=== PATIENT | female | born 1945 | race Caucasian/White ===

== ENCOUNTER 2017-01-30 08:42 | Emergency (ER) | payer MEDICARE, OTHER ==
[2017-01-30 08:54] VITALS: BP 135/81
--- NOTE | 2017-01-30 09:21 | UC ---
Neck Pain HPI - HPI Summary HPI Summary: GOT UP TO USE THE RESTROOM LAST NIGHT AND TWEAKED HER NECK. HAD IMMEDIATE PAIN RIGHT SIDE OF NECK. WORSE THIS MORNING. DID NOT TAKE ANY ANALGESICS. NO RADIATION OF THE PAIN. - History of Current Complaint Chief Complaint: UCBackPain Stated Complaint: NECK PAIN Time Seen by Provider: 01/30/17 09:10 Hx Obtained From: Patient Onset/Duration Of Injury/Symptoms: Hours Mechanism Of Injury: No Known Trauma Timing: Constant Onset/Duration: Sudden Onset, Lasting Hours, Still Present Severity: Moderate Pain Intensity: 2 Pain Scale Used: 0-10 Numeric Location: Discrete At: - RIGHT SIDE OF NECK Character: Sharp, Aching, Spasmotic Aggravating Factors: Movement Alleviating Factors: Nothing Associated Signs & Symptoms: Positive: Negative - Allergies/Home Medications Allergies/Adverse Reactions: Allergies Allergy/AdvReac Type Severity Reaction Status Date / Time Iodine Allergy Unknown Verified 03/06/16 08:59 Reaction Details Shellfish Allergy Allergy Vomiting Verified 03/06/16 08:59 Tramadol Allergy Unknown Verified 03/06/16 08:59 Reaction Details PMH/Surg Hx/FS Hx/Imm Hx Endocrine History Of: Denies: Diabetes, Thyroid Disease Cardiovascular History Of: Denies: Cardiac Disorders, Hypertension, Pacemaker/ICD Respiratory History Of: Denies: COPD, Asthma GI/ History Of: Denies: Ulcer Cancer History Of: Reports: Breast Cancer - LEFT - Surgical History Surgical History: Yes Surgery Procedure, Year, and Place: hip surgery left 2003; MASECTOMY LEFT 2012; BILATERAL FEET SX. Right hip replacement 02/2016 - Family History Family History: BREAST CANCER - SISTER - Social History Alcohol Use: None Alcohol Amount: 1/DAY Substance Use Type: None Smoking Status (MU): Never Smoked Tobacco - Immunization History Most Recent Influenza Vaccination: 2014 Most Recent Tetanus Shot: UP TO DATE Most Recent Pneumonia Vaccination: WITHIN 5 YRS Review Of Systems Constitutional: Positive: Negative Respiratory: Positive: Negative Cardiovascular: Positive: Negative Gastrointestinal: Positive: Negative Musculoskeletal: Positive: Arthralgia, Decreased ROM, Myalgia All Other Systems Reviewed And Are Negative: Yes Physical Exam Triage Information Reviewed: Yes Appearance: Well-Appearing, Well-Nourished, Pain Distress - MODERATE PAIN DISTRESS WITH ATTEMPTED HEAD MVMT Vital Signs: Initial Vital Signs Temp 98.4 F 01/30/17 08:48 Pulse 60 01/30/17 08:48 Resp 18 01/30/17 08:48 BP 135/81 01/30/17 08:48 Pulse Ox 100 01/30/17 08:48 Vital Signs Reviewed: Yes Eyes: Positive: Conjunctiva Clear ENT: Positive: Hearing grossly normal Neck: Positive: Supple, Nontender, No Lymphadenopathy Respiratory: Positive: No respiratory distress, No accessory muscle use Cardiovascular: Positive: Pulses Normal Abdomen Description: Positive: Soft Musculoskeletal: Positive: No Edema, ROM Limited @ - NECK Neurological: Positive: Alert Psychological: Positive: Age Appropriate Behavior Skin: Negative: rashes Neck Pain Course/Dx - Differential Dx/Diagnosis Provider Diagnoses: RIGHT TRAPEZIUS MUSCLE STRAIN/CERVICAL STRAIN Discharge - Discharge Plan Condition: Stable Disposition: HOME Prescriptions: Cyclobenzaprine TAB* [Flexeril TAB*] 10 mg PO BID PRN #30 tab PRN Reason: Pain Patient Education Materials: Cervical Strain (ED), Muscle Strain (ED) Referrals: Aleksey Cuevas MD [Primary Care Provider] - If Needed Additional Instructions: REST, HEAT. BE SURE TO GO THROUGH SLOW RANGE OF MOTION AND STRETCHING EXERCISES DAILY YOU ARE ABLE TO PREVENT STIFFENING UP AND MAKING THE DISCOMFORT WORSE. IBUPROFEN MAX DOSE: 600MG (3 TABS) EVERY 6 HRS OR 800MG (4 TABS) EVERY 8 HRS SEEK FOLLOW-UP IF YOU ARE NOT IMPROVING EXPECTED OVER THE NEXT WEEK OR SO.
== END 2017-01-30 09:32 | disposition home or self-care (01) ==
LOC: UCEAST 08:42
DX: S16.1XXA Strain of muscle, fascia and tendon at neck level, initial encounter (principal); Z88.5 Allergy status to narcotic agent; Z91.013 Allergy to seafood; Z85.3 Personal history of malignant neoplasm of breast; Z96.641 Presence of right artificial hip joint
CPT/HCPCS: 99212; G0463

== ENCOUNTER → 2017-03-28 09:00 | Emergency (ER) | payer MEDICARE ==
[2017-03-28 09:57] LABS: Hematocrit 36 % (35-47); Hemoglobin 12.2 g/dl (12.0-16.0); Mean Corpuscular HGB Conc 34 g/dl (31-36); Mean Corpuscular Hemoglobin 33 pg (27-31); Mean Corpuscular Volume 97 fL (80-97); Mean Platelet Volume 10 um3 (7.4-10.4); Red Blood Count 3.72 10^6/ul (4.0-5.4); Red Cell Distribution Width 14 % (10.5-15); White Blood Count 3.7 10^3/ul (3.5-10.8)
[2017-03-28 10:13] LABS: Albumin 4.2 g/dL (3.2-5.2); Calcium 9.5 mg/dL (8.6-10.3); EGFR African American 119.8 (>60); EGFR Non-African American 93.2 (>60); Globulin 2.5 g/dL (2-4); Potassium 3.7 mmol/L (3.5-5.0); Total Bilirubin 0.9 mg/dL (0.2-1.0); Total Protein 6.7 g/dL (6.4-8.9); Troponin I 0.01 ng/mL (<0.04)
[2017-03-28 10:51] LABS: TSH (Thyroid Stimulating Horm) 0.82 mcIU/mL (0.34-5.60)
--- NOTE | 2017-03-28 11:22 | RAD ---
Indication: Near syncope. CT of the brain was performed without IV contrast. Ventricular structures are midline. No midline shift is noted. The extra-axial spaces are unremarkable. There is no evidence of intracranial mass or hemorrhage. No other high or low density lesions are identified. Mastoid air cells and paranasal sinuses are unremarkable. No prior study is available for comparison. IMPRESSION: No intracranial mass or hemorrhage is noted.
[2017-03-28 12:46] VITALS: BP 122/72
--- NOTE | 2017-03-29 17:42 | ED ---
Chelsey Justin Edward, scribed for Jean-Claude Bejarano MD on 03/28/17 at 1008 . Complex/Multi-Sys Presentation - HPI Summary HPI Summary: 72 y/o female presents to ED with pain in her left shoulder that has resolved. Patient woke up with intense pain in her left shoulder at 02:00, with numbness and tingling down her arm. Then while urinating and defecating moments later, she became lightheaded, dizzy, and diaphoretic. All symptoms were alleviated by spontaneous resolution. Patient had pain in her left shoulder a couple of times before. PMHx breast cancer 5-6 years ago. SHx - both hips replaced, tonsillectomy. Pt is a non-smoker, uses EtOH daily. FHx [place] - patient's father with angina. - History Of Current Complaint Chief Complaint: EDChestPainROMI Time Seen by Provider: 03/28/17 09:19 Hx Obtained From: Patient Onset/Duration: Sudden Onset, Lasting Minutes, Resolved Severity Currently: None Severity Initially: Mild Location: Pain At: - Left shoulder, Radiates To: - Numbness and tingling down left arm Associated Signs And Symptoms: Positive: Dizziness, Diaphoresis - Allergies/Home Medications Allergies/Adverse Reactions: Allergies Allergy/AdvReac Type Severity Reaction Status Date / Time Iodine Allergy Unknown Verified 03/06/16 08:59 Reaction Details Shellfish Allergy Allergy Vomiting Verified 03/06/16 08:59 Tramadol Allergy Unknown Verified 03/06/16 08:59 Reaction Details PMH/Surg Hx/FS Hx/Imm Hx Previously Healthy: Yes Endocrine/Hematology History: Denies: Hx Diabetes, Hx Thyroid Disease Cardiovascular History: Denies: Hx Hypertension, Hx Pacemaker/ICD Respiratory History: Denies: Hx Asthma, Hx Chronic Obstructive Pulmonary Disease (COPD) GI History: Denies: Hx Ulcer Musculoskeletal History: Reports: Hx Arthritis Sensory History: Reports: Hx Contacts or Glasses - GLASSES Denies: Hx Hearing Aid Opthamlomology History: Reports: Hx Contacts or Glasses - GLASSES Psychiatric History: Denies: Hx Panic Disorder - Cancer History Cancer Type, Location and Year: Left breast cancer, left mastectomy Hx Chemotherapy: No Hx Radiation Therapy: No - Surgical History Surgery Procedure, Year, and Place: hip surgery left 2003; MASECTOMY LEFT 2012; BILATERAL FEET SX. Right hip replacement 02/2016 Hx Anesthesia Reactions: No Infectious Disease History: No Infectious Disease History: Denies: Hx Clostridium Difficile, Hx Hepatitis, Hx Human Immunodeficiency Virus (HIV), Hx of Known/Suspected MRSA, Hx Shingles, Hx Tuberculosis, Hx Known/ Suspected VRE, Hx Known/Suspected VRSA, History Other Infectious Disease, Traveled Outside the [place] in Last 30 Days - Family History Known Family History: Positive: Other Family History: BREAST CANCER - SISTER - Social History Occupation: Retired Lives: With Family Alcohol Use: Daily Alcohol Amount: 1/DAY Substance Use Type: Reports: None Smoking Status (MU): Never Smoked Tobacco Review of Systems Positive: Skin Diaphoresis Eyes: Negative ENT: Negative Cardiovascular: Negative Respiratory: Negative Gastrointestinal: Negative Genitourinary: Negative Positive: Other - Left shoulder pain with numbness and tingling down arm Skin: Negative Neurological: Other - Dizziness, lightheadedness Psychological: Normal All Other Systems Reviewed And Are Negative: Yes Physical Exam - Summary Physical Exam Summary: VITAL SIGNS:~Reviewed. GENERAL:~~Patient is a well-developed and nourished female who is lying comfortable in the stretcher. ~Patient is not in any acute respiratory distress. HEAD AND FACE:~No signs of trauma.~~No ecchymosis, hematomas or skull depressions.~No sinus tenderness. EYES:~PERRLA, EOMI x 2, No injected conjunctiva, no nystagmus. No photophobia. EARS:~Hearing grossly intact. Ear canals and tympanic membranes are within normal limits. MOUTH:~Oropharynx within normal limits. NECK:~Supple, trachea is midline, no adenopathy, no JVD, no carotid bruit, no c- spine tenderness, neck with full ROM. No meningeal signs, no Kernig's or brudzinskis signs. CHEST:~Symmetric, no tenderness at palpation LUNGS:~Clear to auscultation bilaterally. No wheezing or crackles. CVS:~Regular rate and rhythm, S1 and S2 present, no murmurs or gallops appreciated. ABDOMEN:~Soft, non-tender. No signs of distention. No rebound no guarding, and no masses palpated. Bowel sounds are normal. EXTREMITIES:~FROM in all major joints, no edema, no cyanosis or clubbing. NEURO:~Alert and oriented x 3. No acute neurological deficits. Speech is normal and follows commands. SKIN:~Dry and warm Triage Information Reviewed: Yes Vital Signs On Initial Exam: Initial Vitals Temp Pulse Resp BP Pulse Ox 97.7 F 73 20 131/81 98 03/28/17 09:03 03/28/17 09:03 03/28/17 09:03 03/28/17 09:03 03/28/17 09:03 Vital Signs Reviewed: Yes - [place] Coma Scale Coma Scale Total: 15 Diagnostics - Vital Signs Vital Signs Temp Pulse Resp BP Pulse Ox 03/28/17 09:07 98.4 F 79 20 131/81 98 03/28/17 09:03 97.7 F 73 20 131/81 98 - Laboratory Lab Results: Lab Results 03/28/17 03/28/17 03/28/17 Range/Units 09:42 09:42 09:42 WBC 3.7 (3.5-10.8) 10^3/ul RBC 3.72 L (4.0-5.4) 10^6/ul Hgb 12.2 (12.0-16.0) g/dl Hct 36 (35-47) % MCV 97 (80-97) fL MCH 33 H (27-31) pg MCHC 34 (31-36) g/dl RDW 14 (10.5-15) % Plt Count 156 (150-450) 10^3/ul MPV 10 (7.4-10.4) um3 Neut % (Auto) 62.9 (38-83) % Lymph % (Auto) 22.7 L (25-47) % [place] % (Auto) 7.6 (1-9) % Eos % (Auto) 4.9 (0-6) % Baso % (Auto) 1.9 (0-2) % Absolute Neuts (auto) 2.3 (1.5-7.7) 10^3/ul Absolute Lymphs (auto) 0.8 L (1.0-4.8) 10^3/ul Absolute Monos (auto) 0.3 (0-0.8) 10^3/ul Absolute Eos (auto) 0.2 (0-0.6) 10^3/ul Absolute Basos (auto) 0.1 (0-0.2) 10^3/ul Absolute Nucleated RBC 0 10^3/ul Nucleated RBC % 0.1 Sodium 138 (133-145) mmol/L Potassium 3.7 (3.5-5.0) mmol/L Chloride 108 (101-111) mmol/L Carbon Dioxide 25 (22-32) mmol/L Anion Gap 5 (2-11) mmol/L BUN 17 (6-24) mg/dL Creatinine 0.63 (0.51-0.95) mg/dL Est GFR ( Amer) 119.8 (>60) Est GFR (Non-Af Amer) 93.2 (>60) BUN/Creatinine Ratio 27.0 H (8-20) Glucose 125 H (70-100) mg/dL Lactic Acid 1.1 (0.5-2.0) mmol/L Calcium 9.5 (8.6-10.3) mg/dL Magnesium 2.0 (1.9-2.7) mg/dL Total Bilirubin 0.90 (0.2-1.0) mg/dL AST 17 (13-39) U/L ALT 10 (7-52) U/L Alkaline Phosphatase 43 (34-104) U/L Total Creatine Kinase 31 (10-223) U/L Troponin I 0.01 (<0.04) ng/mL B-Natriuretic Peptide ( - 100) pg/mL Total Protein 6.7 (6.4-8.9) g/dL Albumin 4.2 (3.2-5.2) g/dL Globulin 2.5 (2-4) g/dL Albumin/Globulin Ratio 1.7 (1-3) TSH 0.82 (0.34-5.60) mcIU/mL 03/28/17 Range/Units 09:42 WBC (3.5-10.8) 10^3/ul RBC (4.0-5.4) 10^6/ul Hgb (12.0-16.0) g/dl Hct (35-47) % MCV (80-97) fL MCH (27-31) pg MCHC (31-36) g/dl RDW (10.5-15) % Plt Count (150-450) 10^3/ul MPV (7.4-10.4) um3 Neut % (Auto) (38-83) % Lymph % (Auto) (25-47) % [place] % (Auto) (1-9) % Eos % (Auto) (0-6) % Baso % (Auto) (0-2) % Absolute Neuts (auto) (1.5-7.7) 10^3/ul Absolute Lymphs (auto) (1.0-4.8) 10^3/ul Absolute Monos (auto) (0-0.8) 10^3/ul Absolute Eos (auto) (0-0.6) 10^3/ul Absolute Basos (auto) (0-0.2) 10^3/ul Absolute Nucleated RBC 10^3/ul Nucleated RBC % Sodium (133-145) mmol/L Potassium (3.5-5.0) mmol/L Chloride (101-111) mmol/L Carbon Dioxide (22-32) mmol/L Anion Gap (2-11) mmol/L BUN (6-24) mg/dL Creatinine (0.51-0.95) mg/dL Est GFR ( Amer) (>60) Est GFR (Non-Af Amer) (>60) BUN/Creatinine Ratio (8-20) Glucose (70-100) mg/dL Lactic Acid (0.5-2.0) mmol/L Calcium (8.6-10.3) mg/dL Magnesium (1.9-2.7) mg/dL Total Bilirubin (0.2-1.0) mg/dL AST (13-39) U/L ALT (7-52) U/L Alkaline Phosphatase (34-104) U/L Total Creatine Kinase (10-223) U/L Troponin I (<0.04) ng/mL B-Natriuretic Peptide 41 ( - 100) pg/mL Total Protein (6.4-8.9) g/dL Albumin (3.2-5.2) g/dL Globulin (2-4) g/dL Albumin/Globulin Ratio (1-3) TSH (0.34-5.60) mcIU/mL Result Diagrams: 03/28/17 09:42 03/28/17 09:42 Lab Statement: Any lab studies that have been ordered have been reviewed, and results considered in the medical decision making process. - CT BRAIN CT CT Interpretation: No Acute Changes - No intracranial mass or hemorrhage is noted. CT Interpretation Completed By: Radiologist - EKG 1 EKG Interpretation: 09:13 - Sinus rhythm @ [address] elevations Complex Multi-Symp Course/Dx Assessment/Plan: 72 y/o female presents to ED with pain in her left shoulder that has resolved. Patient woke up with intense pain in her left shoulder at 02: 00, with numbness and tingling down her arm. Then while urinating and defecating moments later, she became lightheaded, dizzy, and diaphoretic. All symptoms were alleviated by spontaneous resolution. Patient had pain in her left shoulder a couple of times before. PMHx breast cancer 5-6 years ago. SHx - both hips replaced, tonsillectomy. Pt is a non-smoker, uses EtOH daily. FHx [place] - patient's father with angina. Test results are WNL. Brain CT shows no intracranial mass or hemorrhage. EKG shows NSR with no ST elevations. His orthostatic vital signs were negative. In the ED course the patient was asymptomatic. I believe her symptoms are secondary to a vasovagal episode. Therefore I discharged the patient with F/U with her PCP. Patient was instructed to return if she experiences other symptoms. The patient understands and agrees. - Diagnoses Differential Diagnoses/HQI/PQRI: Other - CVA, TIA, Syncope, vasovagal syncope Provider Diagnoses: Vasovagal syncope Discharge - Discharge Plan Condition: Stable Disposition: HOME Patient Education Materials: Syncope (ED) Referrals: Aleksey Cuevas MD [Primary Care Provider] - 3 Days (Follow up in 2-3 days.) The documentation as recorded by the Chelsey burt Edward accurately reflects the service I personally performed and the decisions made by me, Jean-Claude Bejarano MD.
== END | disposition home or self-care (01) ==
LOC: ED 09:00
DX: R55 Syncope and collapse (principal); R42 Dizziness and giddiness
CPT/HCPCS: 36415; 70450; 80053; 82550; 83605; 83735; 83880; 84443; 84484; 85025; 93005; 99282